=== PATIENT | female | born 1955 | race Caucasian/White ===

== ENCOUNTER → 2016-10-26 | Outpatient (CLI) | payer OTHER ==
[2016-10-26 15:01] LABS: HEMOGLOBIN 14.1 gm/dl (12.3-15.3); RED BLOOD COUNT 4.51 M/UL (4.00-5.10); WHITE BLOOD COUNT 5.1 K/UL (4.5-11.0)
[2016-10-26 15:24] LABS: BUN/CREATININE RATIO 11 (0-10)
== END ==
LOC: LAB 13:43
PROVIDERS: Nurse Practitioner Family
DX: C92.Z0 Other myeloid leukemia not having achieved remission (principal); Z98.890 Other specified postprocedural states
CPT/HCPCS: 36415; 80053; 80197; 83735; 84100; 85025; 87497; 87799

== ENCOUNTER 2021-03-16 16:49 | Emergency (ER) | payer MEDICARE ==
[~2021-03-16 16:49] MED LIST: ATIVAN1 MG PO; CYMBALTA60 MG PO; GABAPENTIN600 MG PO; LEVAQUIN750 MG PO; NORVASC5 MG PO; SYNTHROID75 MCG PO; [UNRECOGNIZED DRUG - CODE]; [UNRECOGNIZED DRUG - OTHER]
[2021-03-16 18:24] LABS: HEMOGLOBIN 12.1 gm/dl (12.3-15.3); RED BLOOD COUNT 3.79 M/UL (4.00-5.10); WHITE BLOOD COUNT 16.3 K/UL (4.5-11.0)
[2021-03-16] MEDS ORDERED: AUGMENTIN 875-1 EACH PO (21:59)
[2021-03-16] MEDS ORDERED: METRONIDAZOLE500 MG PO (21:59)
== END 2021-03-16 22:15 | disposition home or self-care (01) ==
LOC: ER1 16:49
PROVIDERS: Physician Assistant
DX: K52.9 Noninfective gastroenteritis and colitis, unspecified (principal); N39.0 Urinary tract infection, site not specified; Z88.8 Allergy status to other drugs, medicaments and biological substances; Z85.3 Personal history of malignant neoplasm of breast
CPT/HCPCS: 80053; 81001; 83690; 85025; 96374; 96375; 99284; J0696; J1885; J2405; J7030; Q9967

== ENCOUNTER → 2021-05-10 | Outpatient (CLI) | payer MEDICARE ==
[~2021-05-10] MED LIST changes: +AUGMENTIN 875-1 EACH PO; +METRONIDAZOLE500 MG PO
== END ==
LOC: KOH-I 08:33
DX: R31.0 Gross hematuria (principal); K52.9 Noninfective gastroenteritis and colitis, unspecified; K59.00 Constipation, unspecified
CPT/HCPCS: 74176

== ENCOUNTER → 2021-06-28 | Day surgery (SDC) | payer MEDICARE ==
[~2021-06-28] MED LIST changes: +ASPIRIN EC81 MG PO; +LIPITOR40 MG PO; +MONTELUKAST SOD10 MG PO; +ZOLOFT50 MG PO
== END | disposition home or self-care (01) ==
LOC: OR 06:33
DX: K52.9 Noninfective gastroenteritis and colitis, unspecified (principal); E78.5 Hyperlipidemia, unspecified; Z88.8 Allergy status to other drugs, medicaments and biological substances; Z79.82 Long term (current) use of aspirin; Z20.822 Contact with and (suspected) exposure to COVID-19
CPT/HCPCS: J2001; J2250; J2704; J7120

== ENCOUNTER → 2021-07-12 | Outpatient (CLI) | payer MEDICARE ==
[2021-07-12 15:33] LABS: RED BLOOD COUNT 4.41 M/UL (4.00-5.10); WHITE BLOOD COUNT 7.6 K/UL (4.5-11.0)
== END ==
LOC: LAB 13:58
PROVIDERS: Urology
DX: R31.9 Hematuria, unspecified (principal)
CPT/HCPCS: 36415; 85027

== ENCOUNTER 2021-10-11 17:21 | Observation (INO) | payer MEDICARE ==
[~2021-10-11] VITALS: Ht 157.5 cm; Wt 65.8 kg
[2021-10-11 18:43] LABS: RED BLOOD COUNT 4.17 M/UL (4.00-5.10); WHITE BLOOD COUNT 14.7 K/UL (4.5-11.0)
[2021-10-11 19:02] LABS: BUN/CREATININE RATIO 13 (0-10)
[2021-10-12 04:01] LABS: HEMOGLOBIN 12.7 gm/dl (12.3-15.3); RED BLOOD COUNT 4.15 M/UL (4.00-5.10)
[2021-10-12 04:02] LABS: WHITE BLOOD COUNT 9.9 K/UL (4.5-11.0)
[2021-10-12 04:10] LABS: BUN/CREATININE RATIO 12 (0-10)
[2021-10-12] MEDS ORDERED: LEVOFLOXACIN500 MG PO (09:39)
[2021-10-12] MEDS ORDERED: ACYCLOVIR400 MG PO (12:12)
[2021-10-12] MEDS ORDERED: CYCLOBENZAPRINE10 MG PO (12:12)
[2021-10-13 05:23] LABS: HEMOGLOBIN 12.7 gm/dl (12.3-15.3); RED BLOOD COUNT 4.11 M/UL (4.00-5.10); WHITE BLOOD COUNT 8.9 K/UL (4.5-11.0)
[2021-10-13 06:47] LABS: BUN/CREATININE RATIO 10 (0-10)
== END 2021-10-13 11:40 | disposition home or self-care (01) ==
LOC: ER1 17:21 → M/S 20:41 → CDU 20:41 → M/S 22:57
PROVIDERS: Internal Medicine; Preventive Medicine Occupational Medicine; ADMIT Internal Medicine
DX: L03.114 Cellulitis of left upper limb (principal); I89.0 Lymphedema, not elsewhere classified; I10 Essential (primary) hypertension; E03.9 Hypothyroidism, unspecified; Z20.822 Contact with and (suspected) exposure to COVID-19; Z85.3 Personal history of malignant neoplasm of breast; Z90.12 Acquired absence of left breast and nipple; Z85.6 Personal history of leukemia; Z88.8 Allergy status to other drugs, medicaments and biological substances; Z79.82 Long term (current) use of aspirin; Z79.890 Hormone replacement therapy; Z79.899 Other long term (current) drug therapy
CPT/HCPCS: 36415; 80048; 80053; 80202; 81001; 83605; 83735; 84439; 84443; 85025; 85027; 85652; 86140; 87040; 87086; 96361; 96374; 99284; G0378; J1650; J3370; J7030; J7070; U0002

== ENCOUNTER → 2021-12-20 | Outpatient (CLI) | payer MEDICARE ==
[~2021-12-20] MED LIST changes: +ACYCLOVIR400 MG PO; +CYCLOBENZAPRINE10 MG PO; +LEVOFLOXACIN500 MG PO
== END ==
LOC: KOH-I 16:00
DX: Z01.818 Encounter for other preprocedural examination (principal); I10 Essential (primary) hypertension
CPT/HCPCS: 71046

== ENCOUNTER → 2022-01-01 | Outpatient (CLI) | payer MEDICARE | LOC: LAB 12:38 | DX: H02.839 Dermatochalasis of unspecified eye, unspecified eyelid (principal); Z20.822 Contact with and (suspected) exposure to COVID-19 | CPT/HCPCS: U0002 ==